=== PATIENT | male | born 2000 | race Two or more races ===

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

== ENCOUNTER 2021-09-12 11:26 | Inpatient (IN) | payer MEDICAID, OTHER ==
[~2021-09-12] VITALS: Ht 172.7 cm; Wt 59.1 kg
[~2021-09-12 11:26] MED LIST: INSU100C10 SQ; INSU100V9 SQ
[2021-09-12] MEDS ORDERED: Insulin Reg/NS 100units/100mL 100 ML IV PRN (12:05)
[2021-09-12] MEDS ORDERED: normal saline 1000ML IV soln IV ONE (12:05)
[2021-09-12] MEDS ORDERED: insulin regular, human U-100 3ml vial - multi-dose IV ONE (12:05)
[2021-09-12 12:11] LABS: BASOPHILS # (AUTO) 0.1 X10'3 (0-0.2); BASOPHILS % (AUTO) 0.6 % (0-1); EOSINOPHILS # (AUTO) 0.1 X10'3 (0-0.9); EOSINOPHILS % (AUTO) 0.8 % (0-6); HEMATOCRIT 44.2 % (42.0-52.0); HEMOGLOBIN 14.8 g/dl (14.0-17.9); LYMPHOCYTES % (AUTO) 6.9 % (21-51); MEAN CORPUSCULAR HEMOGLOBIN 30.6 PG (27.0-31.0); MEAN CORPUSCULAR HGB CONC 33.5 g/dL (33.0-36.5); MEAN CORPUSCULAR VOLUME 91.5 FL (78-98); MEAN PLATELET VOLUME 8.3 FL (7.4-10.4); MONOCYTES # (AUTO) 0.5 X10'3 (0-0.9); MONOCYTES % (AUTO) 3.8 % (2-12); NEUTROPHILS # (AUTO) 12.5 X10'3 (1.8-7.7); NEUTROPHILS % (AUTO) 87.9 % (42-75); PLATELET COUNT 315 X10'3 (140-440); RED BLOOD COUNT 4.83 X10'6 (4.70-6.10); WHITE BLOOD COUNT 14.2 X10'3 (4.5-11.0)
[2021-09-12 12:22] LABS: ALANINE AMINOTRANSFERASE 33 U/L (12-78); ALBUMIN/GLOBULIN RATIO 1.1 (1.1-1.5); ALKALINE PHOSPHATASE 142 IU/L (20-180); ANION GAP 22 (8-16); ASPARTATE AMINO TRANSFERASE 13 U/L (10-37); BILIRUBIN,TOTAL 1.6 MG/DL (0.1-1.0); BLOOD UREA NITROGEN 34 MG/DL (7-18); BUN/CREATININE RATIO 26.6 (5.4-32.0); CALCIUM 8.7 MG/DL (8.5-10.1); CHLORIDE 89 MMOL/L (99-107); CREATININE 1.28 MG/DL (0.60-1.10); POTASSIUM 4.5 MMOL/L (3.5-5.1); SODIUM 128 MMOL/L (135-145); TOTAL CARBON DIOXIDE 17.3 MMOL/L (24-32); TOTAL PROTEIN 7.8 G/DL (6.4-8.2); eGFR 72 ML/MIN
[2021-09-12 12:31] LABS: GLUCOSE 659 MG/DL (70-104)
[2021-09-12] MEDS ORDERED: sodium phosphate inj. 15 MMOL in dextrose 5%-water 250 ML IV PRN (13:10)
[2021-09-12] MEDS ORDERED: magnesium 4gm in 100ml NS 100 ML IV PRN (13:10)
[2021-09-12] MEDS ORDERED: Neutra Phos packet PO PRN (13:10)
[2021-09-12] MEDS ORDERED: mag hydrox/Alum hydrox/simeth 30ml oral suspension PO PRN (13:10)
[2021-09-12] MEDS ORDERED: acetaminophen 325mg tablet PO PRN (13:10)
[2021-09-12] MEDS ORDERED: ondansetron/PF 4mg/2ml inj IV PRN (13:10)
[2021-09-12] MEDS ORDERED: potassium Cl 40MEQ/1/2NS 520ml 520 ML IV PRN ×4 (13:10)
[2021-09-12] MEDS: normal saline 1000ml 1,000 ML IV SCH ×5 (13:10→21:21)
[2021-09-12] MEDS ORDERED: Insulin Reg/NS 100units/100mL 100 ML IV SCH (13:10)
[2021-09-12] MEDS ORDERED: sodium bicarbonate (8.4%) inj. 50 MEQ in dextrose 5% water 500ml 250 ML IV PRN (13:10)
[2021-09-12] MEDS ORDERED: magnesium Cl slow-release 64mg tablet PO PRN (13:10)
[2021-09-12] MEDS ORDERED: sodium phosphate inj. 30 MMOL in dextrose 5%-water 250 ML IV PRN (13:10)
[2021-09-12] MEDS ORDERED: potassium Cl 20 mEq SR tablet PO PRN ×4 (13:10)
[2021-09-12] MEDS ORDERED: magnesium hydroxide 30ml (MOM) UD suspension PO PRN (13:10)
[2021-09-12] MEDS ORDERED: magnesium 2GM in 50ml NS 50 ML IV PRN (13:10)
[2021-09-12] MEDS ORDERED: insulin regular, human U-100 3ml vial - multi-dose IV PRN (13:10)
[2021-09-12] MEDS ORDERED: sodium bicarbonate (8.4%) inj. 100 MEQ in dextrose 5% water 500ml 500 ML IV PRN (13:10)
[2021-09-12] MEDS ORDERED: potassium CL 20mEq in D5-1/2NS 1,000 ML IV PRN (13:10)
--- NOTE | 2021-09-12 13:40 | NUR ---
bg 341 started insulin drip at 5units per protocol
[2021-09-12 14:02] LABS: ALBUMIN 3.2 G/DL (3.4-5.0); ANION GAP 18 (8-16); BLOOD UREA NITROGEN 29 MG/DL (7-18); BUN/CREATININE RATIO 28.4 (5.4-32.0); CHLORIDE 99 MMOL/L (99-107); CREATININE 1.02 MG/DL (0.60-1.10); GLUCOSE 326 MG/DL (70-104); PHOSPHORUS 3.3 MG/DL (2.3-4.5); POTASSIUM 3.5 MMOL/L (3.5-5.1); SODIUM 135 MMOL/L (135-145); TOTAL CARBON DIOXIDE 18.5 MMOL/L (24-32); eGFR > 90 ML/MIN
[2021-09-12 15:10] VITALS: BP 110/57
--- NOTE | 2021-09-12 15:10 | NUR ---
Pt arrived from ED, ambulated stand by assist to bed. survey research manager at bedside. A&ox4. First set of vitals complete and MRSA swab complete.
[2021-09-12 16:25] LABS: ANION GAP 12 (8-16); BLOOD UREA NITROGEN 22 MG/DL (7-18); BUN/CREATININE RATIO 28.2 (5.4-32.0); CALCIUM 7.7 MG/DL (8.5-10.1); CHLORIDE 106 MMOL/L (99-107); CREATININE 0.78 MG/DL (0.60-1.10); GLUCOSE 157 MG/DL (70-104); POTASSIUM 3.5 MMOL/L (3.5-5.1); SODIUM 139 MMOL/L (135-145); TOTAL CARBON DIOXIDE 21.1 MMOL/L (24-32); eGFR > 90 ML/MIN
--- NOTE | 2021-09-12 17:44 | NUR ---
Paged Dr Rodriguez PAGER ID: [phone] MESSAGE: Anthony Sidhu [id number] DKA pt is on Insulin 5ml/hr, BS 108, maxed out on KCL 20meq D5 1/2NS at 250ml/hr. Recent C02 21.1, Anion Gap 12 Please advise. Thanks Sunni [phone]
[2021-09-12 18:00] VITALS: BP 109/59
--- NOTE | 2021-09-12 18:00 | NUR ---
Patient in room PCU 3010. I have received report from Sunni DYE and had the opportunity to ask questions and assume patient care.
--- NOTE | 2021-09-12 18:26 | NUR ---
[place] documentation: I have reviewed and agree with all interventions, assessments performed and documented by HARDIK Choi.
--- NOTE | 2021-09-12 18:27 | NUR ---
Problems reprioritized. Patient report given, questions answered & plan of care reviewed with HARDIK Sapp. Pt sleeping comfortably at change of shift, no signs of distress noted at this time.
--- NOTE | 2021-09-12 18:27 | NUR ---
[place] Medication Administration: For this medication-pass time frame, all medication were reviewed, dispensed, administered and documented per hospital policy by HARDIK Choi.
[2021-09-12 18:34] LABS: ALBUMIN 2.9 G/DL (3.4-5.0); ANION GAP 10 (8-16); BLOOD UREA NITROGEN 19 MG/DL (7-18); BUN/CREATININE RATIO 27.9 (5.4-32.0); CALCIUM 7.7 MG/DL (8.5-10.1); CHLORIDE 108 MMOL/L (99-107); CREATININE 0.68 MG/DL (0.60-1.10); GLUCOSE 98 MG/DL (70-104); PHOSPHORUS 3.5 MG/DL (2.3-4.5); POTASSIUM 3.5 MMOL/L (3.5-5.1); SODIUM 141 MMOL/L (135-145); TOTAL CARBON DIOXIDE 23.2 MMOL/L (24-32); eGFR > 90 ML/MIN
[2021-09-12] MEDS ORDERED: glucagon, human recombinant 1mg kit SUBCUT PRN (19:00)
[2021-09-12] MEDS ORDERED: MESSAGE TO PHARMACY PO ONE (19:00)
[2021-09-12] MEDS ORDERED: insulin regular, human U-100 3ml vial - multi-dose SQ SCH (19:00)
[2021-09-12] MEDS ORDERED: dextrose 50%-water 50ml dispensing syringe IV PRN ×2 (19:00)
[2021-09-12] MEDS ORDERED: dextrose ORAL solution 15 GM/59 ML bottle PO PRN ×2 (19:00)
[2021-09-12 19:29] LABS: HEMOGLOBIN A1C 12.7 % (4.5-6.2)
[2021-09-12] MEDS: docusate sod 100mg capsule PO SCH (19:57)
[2021-09-12] MEDS ORDERED: K and/or MAG REPLACEMENT MC SCH ×2 (20:00)
[2021-09-12] MEDS ORDERED: insulin glargine (Lantus) pen - multi-dose SQ SCH (21:00)
[2021-09-12 22:00] VITALS: BP 118/70
[2021-09-12 22:25] LABS: ALBUMIN 2.8 G/DL (3.4-5.0); ANION GAP 12 (8-16); BLOOD UREA NITROGEN 16 MG/DL (7-18); BUN/CREATININE RATIO 20.8 (5.4-32.0); CHLORIDE 106 MMOL/L (99-107); CREATININE 0.77 MG/DL (0.60-1.10); GLUCOSE 167 MG/DL (70-104); POTASSIUM 3.8 MMOL/L (3.5-5.1); SODIUM 141 MMOL/L (135-145); eGFR > 90 ML/MIN
--- NOTE | 2021-09-13 00:58 | NUR ---
SPOT CHECK FOR BLOOD GLUCOSE WAS 176, CALLED MD TO VERIFY, NO NEW ORDERS PER [facility].
[2021-09-13] MEDS: normal saline 1000ml 1,000 ML IV SCH ×2 (01:10→05:10)
[2021-09-13 02:00] VITALS: BP 130/66
[2021-09-13 06:00] VITALS: BP 117/70
--- NOTE | 2021-09-13 06:21 | NUR ---
Patient in room PCU 3010. I have received report from Lizbeth DYE and had the opportunity to ask questions and assume patient care.
[2021-09-13 06:33] LABS: ANION GAP 14 (8-16); BLOOD UREA NITROGEN 18 MG/DL (7-18); BUN/CREATININE RATIO 21.7 (5.4-32.0); CALCIUM 8.4 MG/DL (8.5-10.1); CHLORIDE 102 MMOL/L (99-107); CREATININE 0.83 MG/DL (0.60-1.10); GLUCOSE 317 MG/DL (70-104); MAGNESIUM 1.8 MG/DL (1.5-2.4); PHOSPHORUS 3.8 MG/DL (2.3-4.5); POTASSIUM 4.2 MMOL/L (3.5-5.1); SODIUM 138 MMOL/L (135-145); TOTAL CARBON DIOXIDE 22.5 MMOL/L (24-32); eGFR > 90 ML/MIN
--- NOTE | 2021-09-13 06:37 | NUR ---
Problems reprioritized. Patient report given, questions answered & plan of care reviewed with Jessica DYE.
[2021-09-13] MEDS: insulin Lispro (HumaLOG) vial - multi-dose SQ SCH ×2 (08:09→13:39)
[2021-09-13] MEDS: docusate sod 100mg capsule PO SCH (08:10)
--- NOTE | 2021-09-13 09:46 | NUR ---
Dr. MADDEN was paged patient in PCU room 10 name is Anthony weir , wants to talk to the doctor.
--- NOTE | 2021-09-13 10:34 | NUR ---
CHANO Smith paged about tele order renewal pt in PCU room 3010 name is chikis weir. patient's tele order will at 15.30, do you want to renew the order . radha DYE [id number]
--- NOTE | 2021-09-13 10:57 | NUR ---
Initial: Pt admit for DKA, hyponatremia, and CLEM with c/o abdominal pain and nausea. Per EMR pt with h/o T1DM since 11 y/o, current A1c is 12.7%. DM education not appropriate at this time as pt currently in shelter custody so likely not in control of meals and BG coverage. Written DM education with RD contact information placed in patient's chart. Pt on a CHO controlled diet and eating well with 100% PO intake first meal. Pending documentation of PO intake for today. [facility] 09/11, receiving routine bowel care. Will continue to follow. Recommendations: 1) Continue CHO controlled diet 2) Routine bowel care 3) Weekly scaled weights Addendum: 09/13/21 at [address] Amended: Links added.
[2021-09-13 11:00] VITALS: BP 130/73
[2021-09-13 13:44] LABS: BASOPHILS # (AUTO) 0.1 X10'3 (0-0.2); BASOPHILS % (AUTO) 0.6 % (0-1); EOSINOPHILS # (AUTO) 0.4 X10'3 (0-0.9); EOSINOPHILS % (AUTO) 4.1 % (0-6); HEMATOCRIT 42.4 % (42.0-52.0); HEMOGLOBIN 14.3 g/dl (14.0-17.9); LYMPHOCYTES % (AUTO) 21.4 % (21-51); MEAN CORPUSCULAR HEMOGLOBIN 30.4 PG (27.0-31.0); MEAN CORPUSCULAR HGB CONC 33.8 g/dL (33.0-36.5); MEAN CORPUSCULAR VOLUME 89.7 FL (78-98); MEAN PLATELET VOLUME 7.8 FL (7.4-10.4); MONOCYTES # (AUTO) 0.6 X10'3 (0-0.9); MONOCYTES % (AUTO) 6.8 % (2-12); NEUTROPHILS # (AUTO) 6.3 X10'3 (1.8-7.7); NEUTROPHILS % (AUTO) 67.1 % (42-75); PLATELET COUNT 305 X10'3 (140-440); RED BLOOD COUNT 4.73 X10'6 (4.70-6.10); RED CELL DISTRIBUTION WIDTH 13.7 % (11.5-14.5); WHITE BLOOD COUNT 9.4 X10'3 (4.5-11.0)
--- NOTE | 2021-09-13 16:26 | NUR ---
[facility]. patient was alert and oriented x 4 with stable vital signs. patient's PIV on the right AC and left wrist was discontinued with catheter tip intact. patient given a discharged instruction. patient mention the importance of checking blood sugar.
== END 2021-09-13 16:53 | DRG 637 ==
LOC: ER 11:27 → ED HOLD 13:13 → PCU 3S 15:10
PROVIDERS: ADMIT Internal Medicine; ATTEND Internal Medicine
DX: E10.10 Type 1 diabetes mellitus with ketoacidosis without coma (principal); N17.0 Acute kidney failure with tubular necrosis; E87.1 Hypo-osmolality and hyponatremia; D72.829 Elevated white blood cell count, unspecified; E86.0 Dehydration; F17.210 Nicotine dependence, cigarettes, uncomplicated; Z79.4 Long term (current) use of insulin
CPT/HCPCS: 36415; 80048; 80053; 82948; 83036; 83735; 84100; 85025; 87081; 99285; G0378; J1815; J3480; J7030